=== PATIENT | male | born 1945 | race Caucasian/White ===

== ENCOUNTER 2018-05-07 09:20 | Inpatient (IN) ==
[~2018-05-07 09:20] MED LIST: ACETAMINOPHEN 325 MG TABLET PO PRN; DOCUSATE SODIUM 100 MG CAPSULE PO PRN; ONDANSETRON 4 MG/2 ML VIAL IV PRN; ZALEPLON 5 MG CAPSULE PO PRN
[2018-05-07 10:51] LABS: Basophils # 0.1 10*3/uL (0.0-0.2); Basophils % 1.1 % (0.0-0.8); Eosinophils # 0.1 10*3/uL (0.0-0.87); Eosinophils % 1.2 % (0.00-10.9); Hematocrit 40.9 VOL% (42.0-52.0); Hemoglobin 12.8 GM/DL (14.0-18.0); Immature Granulocytes % 0.4 %; Immature Granulocytes Absolute 0.03 #; Lymphocytes # 1.1 10*3/uL (1.4-4.0); Lymphocytes % 14.9 % (21.2-54.2); Mean Corpuscular HGB Conc 31.3 GM/DL (32-36); Mean Corpuscular Hemoglobin 29 PG (27-34); Mean Corpuscular Volume 92.3 FL (87-102); Mean Platelet Volume 11.5 FL (9.6-12.0); Monocytes # 0.8 10*3/uL (0.11-0.8); Monocytes % 10.5 % (1.7-12.7); Neutrophils # 5.2 10*3/uL (1.4-7.4); Neutrophils % 71.9 % (38.7-73.9); Platelet Count 203 T/CUMM (130-400); Red Blood Count 4.43 MC/CUMM (3.8-5.5); Red Cell Distribution Width 14.9 % (9.3-17.3); White Blood Count 7.3 T/CUMM (4-12)
[2018-05-07 11:26] LABS: Albumin 3.8 G/DL (3.4-5.0); Bilirubin,Total 0.7 MG/DL (0.2-1.0); Calcium 8.5 MG/DL (8.5-10.1); Osmolality,Calculated 292.8 MOS/KG (273-304); Potassium 3.6 MMOL/L (3.5-5.1); Total Protein 6.5 G/DL (6.4-8.3); Troponin I 0.053 NG/ML (0.00-0.045)
[2018-05-07 13:06] LABS: Troponin I 0.048 NG/ML (0.00-0.045)
[2018-05-07] MEDS ORDERED: ceFAZolin 1,000 MG in SYRINGE 1 EACH IV ONE (13:18)
[2018-05-07] MEDS ORDERED: diphenhydrAMINE CAP 25 MG CAPSULE PO ONE (13:18)
[2018-05-07] MEDS ORDERED: DIAZEPAM 5 MG TABLET PO ONE (13:18)
[2018-05-07] MEDS ORDERED: ceFAZolin 1,000 MG VIAL IRRIG ONE (13:18)
[2018-05-07] MEDS: SODIUM CHLORIDE 0.9% 1,000 ML IV SCH (15:25)
[2018-05-07] MEDS: PANTOPRAZOLE 40 MG TABLET PO SCH (15:25)
[2018-05-07 15:37] LABS: Troponin I 0.051 NG/ML (0.00-0.045)
[2018-05-07] MEDS ORDERED: HEPARIN/NACL 0.9% 2 UNITS/ML 500 ML IV ONE (15:42)
[2018-05-07] MEDS ORDERED: LIDOCAINE 1% 20 ML VIAL ONE (15:42)
[2018-05-07] MEDS ORDERED: TISSUE ADHESIVE 1 EACH APPLICATOR TOP ONE (15:43)
[2018-05-07] MEDS ORDERED: ceFAZolin 1,000 MG VIAL ONE (15:43)
[2018-05-07] MEDS ORDERED: MIDAZOLAM 2 MG/2 ML VIAL ONE (15:48)
[2018-05-07] MEDS ORDERED: fentaNYL 100 MCG/2 ML VIAL ONE (15:48)
[2018-05-07] MEDS ORDERED: diphenhydrAMINE CAP 25 MG CAPSULE PO PRN (17:30)
[2018-05-07] MEDS ORDERED: MAGNESIUM HYDROXIDE SUSP 30 ML UDCUP PO PRN (17:31)
[2018-05-07] MEDS ORDERED: LATANOPROST 0.005% OPH SOLN 2.5 ML BOTTLE BOTH EYES SCH (18:30)
[2018-05-07] MEDS: LOSARTAN 50 MG TABLET PO SCH (18:39)
[2018-05-07] MEDS ORDERED: DORZOLAMIDE 2% OPH SOLN 10 ML BOTTLE BOTH EYES SCH (21:00)
[2018-05-07] MEDS ORDERED: PRAVASTATIN 20 MG TABLET PO SCH (21:00)
[2018-05-07] MEDS ORDERED: LOSARTAN 50 MG TABLET PO SCH (21:32)
[2018-05-07] MEDS: FAMOTIDINE 20 MG TABLET PO SCH (21:44)
[2018-05-07] MEDS ORDERED: DILTIAZEM CD 180 MG CAPSULE PO ONE (22:00)
[2018-05-08] MEDS: SODIUM CHLORIDE 0.9% 1,000 ML IV SCH (00:14)
[2018-05-08 05:34] LABS: Basophils # 0.1 10*3/uL (0.0-0.2); Basophils % 0.9 % (0.0-0.8); Eosinophils # 0.1 10*3/uL (0.0-0.87); Eosinophils % 1.6 % (0.00-10.9); Hematocrit 39.5 VOL% (42.0-52.0); Hemoglobin 12.5 GM/DL (14.0-18.0); Immature Granulocytes % 0.5 %; Immature Granulocytes Absolute 0.04 #; Lymphocytes # 1.5 10*3/uL (1.4-4.0); Lymphocytes % 16.9 % (21.2-54.2); Mean Corpuscular HGB Conc 31.6 GM/DL (32-36); Mean Corpuscular Hemoglobin 29 PG (27-34); Mean Corpuscular Volume 91.6 FL (87-102); Mean Platelet Volume 11.7 FL (9.6-12.0); Monocytes # 0.9 10*3/uL (0.11-0.8); Monocytes % 10.2 % (1.7-12.7); Neutrophils # 6.2 10*3/uL (1.4-7.4); Neutrophils % 69.9 % (38.7-73.9); Platelet Count 184 T/CUMM (130-400); Red Blood Count 4.31 MC/CUMM (3.8-5.5); Red Cell Distribution Width 14.6 % (9.3-17.3); White Blood Count 8.8 T/CUMM (4-12)
[2018-05-08 05:58] LABS: Calcium 7.7 MG/DL (8.5-10.1); Osmolality,Calculated 287.8 MOS/KG (273-304); Potassium 3.2 MMOL/L (3.5-5.1); Risk Ratio 3.75; VLDL CHOLESTEROL 19.4 MG/DL
[2018-05-08] MEDS: IPRATROPIUM 500 MCG/2.5 ML NEB RESP TX SCH ×3 (08:10→13:56)
[2018-05-08] MEDS ORDERED: POTASSIUM CHLORIDE 20 MEQ TABLET PO PRN (08:12)
[2018-05-08] MEDS ORDERED: DILTIAZEM CD 180 MG CAPSULE PO SCH (09:00)
[2018-05-08] MEDS ORDERED: AMIODARONE 200 MG TABLET PO SCH (09:00)
[2018-05-08] MEDS: FAMOTIDINE 20 MG TABLET PO SCH (09:37)
[2018-05-08] MEDS: LOSARTAN 50 MG TABLET PO SCH (09:38)
[2018-05-08] MEDS: PANTOPRAZOLE 40 MG TABLET PO SCH (09:44)
[2018-05-08 12:16] VITALS: BP 150/72
== END 2018-05-08 15:04 | disposition home or self-care (01) | DRG 244 ==
LOC: N.CL 09:20 → N.2W 09:20 → N.TELEN 10:53
PROVIDERS: ADMIT Internal Medicine Cardiovascular Disease; ATTEND Internal Medicine Cardiovascular Disease